=== PATIENT | female | born 1980 | race African-American/Black ===

== ENCOUNTER 2018-06-21 11:13 | Emergency (ER) | payer OTHER ==
[~2018-06-21] VITALS: Ht 167.6 cm; Wt 122.5 kg
[2018-06-21 11:31] VITALS: BP 150/95
== END 2018-06-21 12:52 | disposition home or self-care (01) ==
LOC: ER 11:13
DX: J02.9 Acute pharyngitis, unspecified (principal)
CPT/HCPCS: 71046; 87804